=== PATIENT | female | born 1995 | race Caucasian/White ===

== ENCOUNTER 2017-12-24 17:59 | Outpatient (CLI) | payer OTHER ==
[2017-12-24 19:32] LABS: RUPTURE FETAL MEMBRANES NEGATIVE (NEGATIVE)
== END 2017-12-24 21:21 | disposition home or self-care (01) ==
LOC: OBT 17:59 → L-D 18:00 → OBT 21:21
DX: O42.913 Preterm premature rupture of membranes, unspecified as to length of time between rupture and onset of labor, third trimester (principal); Z3A.30 30 weeks gestation of pregnancy
CPT/HCPCS: 76817; 76818; 84112

== ENCOUNTER 2018-01-15 22:13 | Outpatient (CLI) | payer OTHER ==
[2018-01-15 23:07] LABS: ADD UMIC YES; UR ASCORBIC ACID NEGATIVE (NEGATIVE); UR BACTERIA FEW /HPF (NONE SEEN); UR BILIRUBIN (Dip) NEGATIVE (NEGATIVE); UR BLOOD (Dip) NEGATIVE (NEGATIVE); UR CLARITY SLIGHTLY CLOUDY (CLEAR); UR COLOR YELLOW (YELLOW); UR GLUCOSE (Dip) NEGATIVE (NEGATIVE); UR KETONES (Dip) NEGATIVE (NEGATIVE); UR LEUKOCYTE ESTERASE (Dip) 3+ Leu/ul (NEGATIVE); UR MUCUS FEW /HPF (NONE SEEN); UR NITRITE (Dip) NEGATIVE (NEGATIVE); UR RBC 2 /HPF (0-5); UR SPECIFIC GRAVITY (Dip) 1.029 (1.003-1.030); UR SQUAMOUS EPITHELIAL CELL MODERATE /HPF (FEW); UR TOTAL PROTEIN (Dip) NEGATIVE (NEGATIVE); UR UROBILINOGEN (Dip) 1+ mg/dL (NEGATIVE); UR WBC 21 /HPF (0-5)
[2018-01-15] MEDS ORDERED: TERBUTALINE 1 ML (23:23)
[2018-01-15] MEDS: TERBUTALINE 1 MG/ML INJ SC (23:37)
[2018-01-15] MEDS: LACTATED RINGER'S 1,000 ML IV (23:37)
[2018-01-16] MEDS: LACTATED RINGER'S 1,000 ML IV ×2 (01:01→08:07)
[2018-01-16 01:16] LABS: WHITE BLOOD COUNT 10.1 10^3/ul (4.8-10.8)
[2018-01-16 01:16] LABS: ADD MAN DIFF? NO; BASOPHILS % 0.2 % (0.0-2.0); EOSINOPHILS # 0.1 10^3/ul (0.0-0.5); EOSINOPHILS % 0.9 % (0.0-7.0); HEMATOCRIT 33.9 % (37.0-47.0); HEMOGLOBIN 11.4 g/dl (12.0-16.0); LYMPHOCYTES # 1.8 10^3/ul (0.8-2.9); LYMPHOCYTES % 18.3 % (15.0-51.0); MEAN CORPUSCULAR HEMOGLOBIN 28.2 pg (29.0-33.0); MEAN CORPUSCULAR HGB CONC 33.6 g/dl (32.0-37.0); MEAN CORPUSCULAR VOLUME 83.9 fl (82.0-101.0); MEAN PLATELET VOLUME 10.5 fl (7.4-10.4); MONOCYTE # 0.9 10^3/ul (0.3-0.9); MONOCYTES % 8.7 % (0.0-11.0); NEUTROPHIL # 7.1 10^3/ul (1.6-7.5); PLATELET COUNT 270 10^3/UL (140-415); RED BLOOD COUNT 4.04 10^6/ul (4.20-5.40); RED CELL DISTRIBUTION WIDTH 12.5 % (11.5-14.5)
[2018-01-16] MEDS: CEFAZOLIN 2 GM/50 ML (PMX) 50 ML IVPB ×2 (02:00→08:07)
[2018-01-16 02:43] LABS: RUPTURE FETAL MEMBRANES NEGATIVE (NEGATIVE)
== END 2018-01-16 14:50 | disposition home or self-care (01) ==
LOC: OBT 22:13 → L-D 22:14
DX: O62.9 Abnormality of forces of labor, unspecified (principal); O23.43 Unspecified infection of urinary tract in pregnancy, third trimester; Z3A.34 34 weeks gestation of pregnancy
CPT/HCPCS: 36415; 76815; 81001; 84112; 85025; 87086; 96360; 96361

== ENCOUNTER 2018-02-20 09:05 | Inpatient (IN) | payer OTHER ==
[2018-02-20] MEDS: LACTATED RINGER'S 1,000 ML IV ×4 (10:28→17:48)
[2018-02-20] MEDS ORDERED: LIDOCAINE 1% (MPF) 30 ML INJ INJ (10:30)
[2018-02-20] MEDS ORDERED: IBUPROFEN 600 MG TAB PO (10:30)
[2018-02-20] MEDS ORDERED: OXYTOCIN 30 UNITS/LR 500 ML IV ×3 (10:30→13:30)
[2018-02-20] MEDS ORDERED: CARBOPROST 250 MCG INJ IM (10:30)
[2018-02-20] MEDS ORDERED: METHYLERGONOVINE 0.2 MG INJ IM (10:30)
[2018-02-20] MEDS ORDERED: MISOPROSTOL 200 MCG TAB PR (10:30)
[2018-02-20 10:47] LABS: ADD MAN DIFF? NO
[2018-02-20 11:15] LABS: INR 0.91; PROTIME 12.3 Sec (11.9-14.9)
[2018-02-20 11:16] LABS: PARTIAL THROMBOPLASTIN TIME 27.6 Sec (23.0-35.0)
[2018-02-20 11:25] LABS: BASOPHILS % 0.2 % (0.0-2.0); EOSINOPHILS % 0.3 % (0.0-7.0); HEMATOCRIT 36.2 % (37.0-47.0); HEMOGLOBIN 11.8 g/dl (12.0-16.0); LYMPHOCYTES # 1.7 10^3/ul (0.8-2.9); LYMPHOCYTES % 17.5 % (15.0-51.0); MEAN CORPUSCULAR HEMOGLOBIN 26.5 pg (29.0-33.0); MEAN CORPUSCULAR HGB CONC 32.6 g/dl (32.0-37.0); MEAN CORPUSCULAR VOLUME 81.3 fl (82.0-101.0); MEAN PLATELET VOLUME 10.9 fl (7.4-10.4); MONOCYTE # 0.6 10^3/ul (0.3-0.9); MONOCYTES % 6.1 % (0.0-11.0); NEUTROPHIL # 7.4 10^3/ul (1.6-7.5); NEUTROPHILS % 75.4 % (39.0-77.0); PLATELET COUNT 310 10^3/UL (140-415); RED BLOOD COUNT 4.45 10^6/ul (4.20-5.40); RED CELL DISTRIBUTION WIDTH 12.9 % (11.5-14.5)
[2018-02-20 11:25] LABS: WHITE BLOOD COUNT 9.8 10^3/ul (4.8-10.8)
[2018-02-20 12:43] LABS: HEPATITIS B SURFACE ANTIGEN NEGATIVE (NEGATIVE)
[2018-02-20] MEDS: OXYTOCIN 30 UNITS/LR 500 ML IV (13:42)
[2018-02-20] MEDS ORDERED: NALOXONE (0.4 MG/ML) INJ IV (17:00)
[2018-02-20 21:38] LABS: RAPID PLASMA REAGIN NONREACTIVE (NR)
[2018-02-21] MEDS: FENTAnyl 2MCG/ML-ROPIV 0.2% 100 ML BAG EPI ×3 (01:19→16:11)
[2018-02-21] MEDS: LACTATED RINGER'S 1,000 ML IV ×3 (01:35→17:14)
[2018-02-21] MEDS ORDERED: ONDANSETRON 4 MG INJ (09:05)
[2018-02-21] MEDS: ONDANSETRON 4 MG INJ IV (09:10)
[2018-02-21] MEDS ORDERED: MISOPROSTOL 100 MCG TAB PO (13:00)
[2018-02-21] MEDS: OXYTOCIN 30 UNITS/LR 500 ML IV (18:10)
[2018-02-21] MEDS: SENNA/DOCUSATE NA (8.6MG/50MG) TAB PO (20:29)
[2018-02-21] MEDS: MAGNESIUM HYDROXIDE 30ML CUP PO (20:29)
[2018-02-21] MEDS: WITCH HAZEL/GLYCERIN PAD PR (20:30)
[2018-02-21] MEDS ORDERED: DIBUCAINE 1% 30 GM OINT TOP (20:30)
[2018-02-21] MEDS ORDERED: CARBOPROST 250 MCG INJ IM (20:30)
[2018-02-21] MEDS: IBUPROFEN 600 MG TAB PO (20:30)
[2018-02-21] MEDS ORDERED: HYDROCODONE/APAP (5/325) TAB PO ×2 (20:30)
[2018-02-21] MEDS: LANOLIN HPA 1 PKT TOP (20:30)
[2018-02-21] MEDS ORDERED: ZOLPIDEM 5 MG TAB PO (20:30)
[2018-02-21] MEDS ORDERED: OXYTOCIN 30 UNITS/LR 500 ML IV (20:30)
[2018-02-21] MEDS ORDERED: METHYLERGONOVINE 0.2 MG INJ IM (20:30)
[2018-02-21] MEDS ORDERED: MISOPROSTOL 200 MCG TAB PR (20:30)
[2018-02-21] MEDS: BENZOCAINE 20% 56 ML SPRAY TOP (20:30)
[2018-02-21] MEDS: LACTATED RINGER'S 1,000 ML IV* (23:25)
[2018-02-21] MEDS: CEPHALEXIN 500 MG CAP PO (23:25)
[2018-02-22] MEDS: MISOPROSTOL 100 MCG TAB VAG ×2 (00:26)
[2018-02-22] MEDS: ACETAMINOPHEN 1000MG/100ML IV 100 ML IVPB (00:27)
[2018-02-22] MEDS: CEPHALEXIN 500 MG CAP PO ×4 (05:44→23:46)
[2018-02-22] MEDS: IBUPROFEN 600 MG TAB PO ×5 (05:44→23:46)
[2018-02-22] MEDS: LACTATED RINGER'S 1,000 ML IV* (05:53)
[2018-02-22] MEDS: MAGNESIUM HYDROXIDE 30ML CUP PO ×2 (08:45→20:58)
[2018-02-22] MEDS: SENNA/DOCUSATE NA (8.6MG/50MG) TAB PO ×2 (08:45→20:58)
[2018-02-22 08:47] LABS: ADD MAN DIFF? NO
[2018-02-22 08:50] LABS: BASOPHILS % 0.2 % (0.0-2.0); EOSINOPHILS # 0.1 10^3/ul (0.0-0.5); EOSINOPHILS % 0.6 % (0.0-7.0); HEMATOCRIT 30.5 % (37.0-47.0); HEMOGLOBIN 9.9 g/dl (12.0-16.0); LYMPHOCYTES # 1.7 10^3/ul (0.8-2.9); LYMPHOCYTES % 15.9 % (15.0-51.0); MEAN CORPUSCULAR HGB CONC 32.5 g/dl (32.0-37.0); MEAN CORPUSCULAR VOLUME 83.1 fl (82.0-101.0); MEAN PLATELET VOLUME 10.8 fl (7.4-10.4); MONOCYTE # 0.9 10^3/ul (0.3-0.9); MONOCYTES % 8.5 % (0.0-11.0); NEUTROPHIL # 7.8 10^3/ul (1.6-7.5); NEUTROPHILS % 74.2 % (39.0-77.0); PLATELET COUNT 244 10^3/UL (140-415); RED BLOOD COUNT 3.67 10^6/ul (4.20-5.40)
[2018-02-22 08:50] LABS: WHITE BLOOD COUNT 10.5 10^3/ul (4.8-10.8)
[2018-02-23] MEDS: IBUPROFEN 600 MG TAB PO ×2 (05:41→11:51)
[2018-02-23] MEDS: CEPHALEXIN 500 MG CAP PO ×2 (05:41→11:51)
[2018-02-23] MEDS: DIPHTH/TET/ACEL PERTUSS (ADULT) 0.5 ML VIAL IM* (08:27)
[2018-02-23] MEDS: MEASLES,MUMPS,RUBELLA VACCINE INJ SC* (08:28)
[2018-02-23] MEDS: VARICELLA VACCINE LIVE/PF 1,350 UNIT/0.5 ML ML SC* (08:29)
[2018-02-23] MEDS: MAGNESIUM HYDROXIDE 30ML CUP PO (08:41)
[2018-02-23] MEDS: SENNA/DOCUSATE NA (8.6MG/50MG) TAB PO (08:41)
== END 2018-02-23 15:26 | disposition home or self-care (01) | DRG 807 ==
LOC: L-D 09:05 → PP1 02-21 19:49
PROVIDERS: Obstetrics & Gynecology
PROC: 10E0XZZ Delivery of Products of Conception, External Approach (ICD-10-PCS; principal; 2018-02-21)
DX: O80 Encounter for full-term uncomplicated delivery (principal); Z37.0 Single live birth; Z3A.39 39 weeks gestation of pregnancy
CPT/HCPCS: 62319; 76815; 85025; 85610; 85730; 86592; 86850; 86900; 86901; 87340; 90716